=== PATIENT | male | born 1995 ===

== ENCOUNTER 2020-09-29 18:23 | Emergency (ER) | payer OTHER, SELFPAY ==
[2020-09-29 20:01] VITALS: BP 123/72; PULSE 58; RESP 16; TEMP 36.7; O2SAT 97; BMI 21.2
--- NOTE | 2020-09-29 20:15 | ED.DENTAL ---
HPI - Dental/Oral General Chief complaint: Dental/Oral Stated complaint: TEETH PAIN Time Seen by Provider: 09/29/20 20:15 Source: patient Mode of arrival: ambulatory Limitations: no limitations History of Present Illness HPI Narrative: 25 y/o male presenting to the ED with left upper tooth pain for the last 1 week. It is acute on chronic with known dental decay and hygiene. He last saw a dentist 1 month ago who reportedly told him he needed several tooth extractions. He has a follow up appointment in January. He states the pain is worse when he eats and when laying down. He has not been sleeping well due to the pain. He denies fever, chills, inability to open jaw, facial swelling. MD Complaint: tooth pain Location: Tooth # (15, 16, 17, & 32) Onset (ago): day(s) (7) Duration: constant Severity: severe Severity scale (1-10): 10 Relieving factors: NSAIDs Exacerbating factors: chewing and heat Context: history of dental caries and poor dental care Treatment prior to arrival: none Related Data Previous Rx's Medication Instructions Recorded clindamycin HCl 300 mg PO Q6H #28 cap 09/29/20 ibuprofen 800 mg PO Q8H PRN #20 tab 09/29/20 tramadol 50 mg PO Q6H PRN #6 tab 09/29/20 Allergies Allergy/AdvReac Type Severity Reaction Status Date / Time No Known Allergies Allergy Unverified 02/27/20 16:24 Review of Systems Review of Systems: Constitutional: No Fever, No Chills ENT/Mouth: No sore throat, No Rhinorrhea, No Swallowing Difficulty, +dental pain Eyes: No Eye Pain, No Swelling, No Redness Cardiovascular: No Chest Pain, No SOB Respiratory: No Cough, No Sputum Gastrointestinal: No Nausea, No Vomiting Skin: No Skin Lesions, No rash Neuro: No Headache Heme/Lymph: No Lymphadenopathy PMFSH Past Medical History Attestation statement: The following information was validated with the patient. Medical History (Updated 09/29/20 @ 20:15 by RICARDO Rae) No known health problems Social History Social History Advance Directives: No Advance Directives Information Provided: Yes Physical Exam Vital Signs: Vital Signs: Last Vital Signs Temp 98.1 F 09/29/20 20:01 Pulse 58 09/29/20 20:01 Resp 16 09/29/20 20:01 BP 123/72 09/29/20 20:01 Pulse Ox 97 09/29/20 20:01 Body Mass Index 21.2 Const: General: cooperative, healthy appearing, comfortable and no acute distress HENMT: Head: Yes normal to inspection Ears: hearing grossly normal bilaterally General nose exam: Normal external nose present Face and sinus: Yes normal facial exam Mouth: lip normal, tongue normal, oropharynx normal and moist mucous membranes Teeth and gingiva: abnormal tooth and associated gingiva upper left first molar , upper left second molar , lower right second molar and gingiva abnormal edematous and tender Throat: Yes posterior oropharynx normal, Yes tonsils normal and Yes uvula midline Eyes: General: appearance normal, both eyes and all related structures Neck: Neck: Yes normal visual inspection, Yes full ROM, Yes no lymphadenopathy, Yes trachea midline, Yes supple and No anterior neck swelling Chest: Chest palpation & inspection: normal inspection of the chest Resp: Effort & Inspection: normal respiratory effort and able to speak in complete sentences Auscultation: clear to auscultation bilaterally Neuro: Cranial nerves: Yes CN's II-XII intact bilaterally Psych: Appearance: grossly normal Mental Status: mental status grossly normal Course Course Course Narrative: 25 y/o male with poor dentition who needs several teeth extracted presents to the ED with acute on chronic dental pain, currently in his upper molars. No palpable abscess. No trisumus. No fevers. No signs of dental abscess. Will treat for possible infection with PO antibiotics, NSAIDS and tramadol for severe pain. Stable for d/c. Emergency Dental numbers provided. Patient agrees to follow up. MDM - Dental/Oral Differential Diagnosis Differential diagnosis: Likely gingival abscess, dental caries, toothache, dental abscess, fracture of tooth and aphthous ulcer Discharge Plan Discharge Clinical Impression: Toothache Patient Disposition: Home, Self-Care Instructions: Toothache (ED) Additional Instructions: Take the prescribed antibiotic as directed. Take the prescribed ibuprofen every 6 hours as needed for pain. Take the prescribed Tramadol as needed for severe pain. Recommend following up with an Emergent Dental Clinic. Do not eat any hot foods. Recommend sticking to soft foods. If you have worsening pain or if you develop facial swelling, inability to open your jaw, eat or drink come back to the ER for further evaluation. Prescriptions: New clindamycin HCl 300 mg capsule 300 mg PO Q6H Qty: 28 RF: 0 ibuprofen 800 mg tablet 800 mg PO Q8H PRN (Reason: pain) Qty: 20 RF: 0 tramadol 50 mg tablet 50 mg PO Q6H PRN (Reason: pain) Qty: 6 RF: 0 Stand Alone Forms: Dental Emergency Numbers
== END 2020-09-29 20:38 | disposition home or self-care (01) ==
LOC: HO.ED 20:20
PROVIDERS: Emergency Provider Emergency Medicine
DX: K08.89 Other specified disorders of teeth and supporting structures (principal)
CPT/HCPCS: 99283; 99284